=== PATIENT | female | born 1970 | race Caucasian/White ===

== ENCOUNTER 2017-07-28 19:00 | Emergency (ER) | payer OTHER ==
[2017-07-28 19:14] VITALS: TEMP 98.3; BMI 43.0
[2017-07-28] MEDS ORDERED: ONDANSETRON 4 MG/2 ML VIAL IVPUSH ONE (19:14)
--- NOTE | 2017-07-28 19:14 | PDOC ---
Rapid Medical Evaluation Time Seen by Provider: 07/28/17 19:08 Medical Evaluation: 07/28/17 19:09 The patient presents with a chief complaint of: [Epigastric pain, H/O pancreatitis, pain is the same. + nausea and vomiting. Lower back pain. H/O " leaky valve in heart " HTN, Vasovagal syndrome ( passes out when vomiting) ] I have performed a brief in-person evaluation of this patient. Pertinent physical exam findings: vss, [Left upper quadrant pain, obese, nondisrended,, lungs clear, ] I have ordered the following: [Labs, urine, zofran, EKG] The patient will proceed to the ED for further evaluation. Discharge Disposition - Diagnosis Epigastric abdominal pain - Referrals - Patient Instructions - Post Discharge Activity
[2017-07-28 20:45] LABS: BASO % 0.4 % (0-2.0); EOS % 0.3 % (0-4.5); HEMATOCRIT 37.2 % (32.4-45.2); HEMOGLOBIN 12.4 GM/dL (10.7-15.3); LYMPH % 14.7 % (8-40); MCH 27.3 pg (25.7-33.7); MCHC 33.2 g/dl (32.0-36.0); MEAN CELL VOLUME 82.1 fl (80-96); MEAN PLT VOLUME 9.8 fl (7.5-11.1); MONO % 5.1 % (3.8-10.2); NEUT % 79.5 % (42.8-82.8); PLATELET COUNT 280 K/MM3 (134-434); RBC 4.54 M/mm3 (3.60-5.2); RDW 14.3 % (11.6-15.6)
[2017-07-28 20:47] LABS: URINE APPEARANCE CLEAR; URINE BILIRUBIN NEGATIVE (NEGATIVE); URINE BLOOD 3+ (NEGATIVE); URINE COLOR LTYELLOW; URINE GLUCOSE (UA) NEGATIVE (NEGATIVE); URINE KETONE NEGATIVE (NEGATIVE); URINE LEUK ESTERASE NEGATIVE (NEGATIVE); URINE NITRITE NEGATIVE (NEGATIVE); URINE UROBILINOGEN NEGATIVE mg/dL (0.2-1.0)
[2017-07-28 20:54] LABS: URINE PROTEIN 2+ (NEGATIVE)
[2017-07-28 20:56] LABS: EPI CELLS RARE /HPF (FEW); URINE HYALINE CAST 4 /lpf; URINE MUCUS RARE
[2017-07-28 21:11] LABS: ALBUMIN 3.8 g/dl (3.4-5.0); ALK PHOS 88 U/L (45-117); ANION GAP 7 (8-16); BILIRUBIN,TOTAL 0.2 mg/dL (0.2-1.0); BLOOD UREA NITROGEN 15 mg/dL (7-18); CALCIUM 9.5 mg/dL (8.5-10.1); CHLORIDE 103 mmol/L (98-107); CO2 28 mmol/L (21-32); CREATININE 0.9 mg/dL (0.55-1.02); GLUCOSE,RANDOM 112 mg/dL (74-106); LIPASE 72 U/L (73-393); POTASSIUM 3.9 mmol/L (3.5-5.1); SGOT/AST 16 U/L (15-37); SGPT/ALT 28 U/L (12-78); SODIUM 138 mmol/L (136-145); TOT PROT 7.7 g/dl (6.4-8.2)
[2017-07-29] MEDS ORDERED: ONDANSETRON 4 MG TABLET PO ONE (00:08)
--- NOTE | 2017-07-29 00:15 | PDOC ---
History of Present Illness - General History Source: Patient Exam Limitations: No Limitations <Cyril Martinez - Last Filed: 07/29/17 01:31> <Mercedes Hansen - Last Filed: 07/29/17 01:38> - General Chief Complaint: Pain Stated Complaint: hx of pancereatitis/ CHEST PAIN Time Seen by Provider: 07/28/17 19:08 - History of Present Illness Initial Comments: 07/29/17 01:31 Patient is a 47 year old female with a significant past medical history of Asthma, Pancreatitis (20 years ago), and Heart Arrhythmia, who presents to the ED with complaints of intermittent left sided pain that began this afternoon. Patient reports making food for her when she suddenly began to experience left sided pain under her breast that began to radiate to her LUQ. She reports feeling this pain before but states this is the worst it has ever been. Patient reports experiencing intermittent nausea since this morning as well as an episode of vomiting in the ED. She reports her last menstrual cycle ends today, and began last . Denies chest pain, Sob. Denies fevers, chills. Denies contact with sick individuals, out of state travelling. Denies any other symptoms. Allergies: Aspirin, Clarithromycin Social history: Lives with . No smoking. No alcohol. No illicit drugs. Surgical history: C -section x3. PMD: Dr. Charles Henry (Cyril Martinez) Past History <Cyril Martinez - Last Filed: 07/29/17 01:31> - Past Medical History Asthma: Yes Cardiac Disorders: Yes (leaky valve) COPD: No GI Disorders: Yes (pancreatitis) HTN: Yes - Suicide/Smoking/Psychosocial Hx Smoking History: Never smoked Information on smoking cessation initiated: No Hx Alcohol Use: No Drug/Substance Use Hx: No Substance Use Type: None <Mercedes Hansen - Last Filed: 07/29/17 01:38> - Past Medical History Allergies/Adverse Reactions: Allergies Allergy/AdvReac Type Severity Reaction Status Date / Time aspirin Allergy Verified 07/28/17 19:09 clarithromycin [From Biaxin] Allergy Verified 07/28/17 19:09 Home Medications: Ambulatory Orders NK [No Known Home Medication] 07/29/17 Review of Systems - Review of Systems Able to Perform ROS?: Yes All Other Systems: Reviewed and Negative <Cyril Martinez - Last Filed: 07/29/17 01:31> <Mercedes Hansen - Last Filed: 07/29/17 01:38> - Review of Systems Comments:: 07/29/17 01:31 CONSTITUTIONAL: Absent: fever, chills, diaphoresis, generalized weakness, malaise, loss of appetite HEENT: Absent: rhinorrhea, nasal congestion, throat pain, throat swelling, difficulty swallowing, mouth swelling, ear pain, eye pain, visual Changes CARDIOVASCULAR: Absent: chest pain, syncope, palpitations, irregular heart rate, lightheadedness , peripheral edema RESPIRATORY: Absent: cough, shortness of breath, dyspnea with exertion, orthopnea, wheezing, stridor, hemoptysis GASTROINTESTINAL: Absent: abdominal pain, abdominal distension, nausea, vomiting, diarrhea, constipation, melena, hematochezia GENITOURINARY: Absent: dysuria, frequency, urgency, hesitancy, hematuria, flank pain, genital pain MUSCULOSKELETAL: Absent: myalgia, arthralgia, joint swelling SKIN: Absent: rash, itching, pallor HEMATOLOGIC/IMMUNOLOGIC: Absent: easy bleeding, easy bruising, lymphadenopathy, frequent infections ENDOCRINE: Absent: unexplained weight gain, unexplained weight loss, heat intolerance, cold intolerance NEUROLOGIC: Absent: headache, focal weakness or paresthesias, dizziness, unsteady gait, seizure, mental status changes, bladder or bowel incontinence PSYCHIATRIC: Absent: anxiety, depression, suicidal or homicidal ideation, hallucinations. (Cyril Martinez) *Physical Exam <Cyril Martinez - Last Filed: 07/29/17 01:31> <Mercedes Hansen - Last Filed: 07/29/17 01:38> - Vital Signs Last Vital Signs Temp Pulse Resp BP Pulse Ox 98.3 F 98 H 18 167/106 100 07/28/17 19:10 07/28/17 19:10 07/28/17 19:10 07/28/17 19:10 07/28/17 19:10 - Physical Exam Comments: 07/29/17 01:31 GENERAL: Well developed, well nourished. Awake and alert. No acute distress. HEENT: Normocephalic, atraumatic. PERRLA, EOMI. No conjunctival pallor. Sclera are non- icteric. Moist mucous membranes. Oropharynx is clear. NECK: Supple. Full ROM. No JVD. Carotid pulses 2+ and symmetric, without bruits. No thyromegaly. No lymphadenopathy. CARDIOVASCULAR: +Tachycardic Regular rate and rhythm. No murmurs, rubs, or gallops. Distal pulses are 2+ and symmetric. PULMONARY: No evidence of respiratory distress. Lungs clear to auscultation bilaterally. No wheezing, rales or rhonchi. ABDOMINAL: Soft. Non-tender. Non-distended. No rebound or guarding. No organomegaly. Normoactive bowel sounds. MUSCULOSKELETAL: Left breast pain. Normal range of motion at all joints. No bony deformities or tenderness. No CVA tenderness. EXTREMITIES: No cyanosis. No clubbing. No edema. No calf tenderness. SKIN: Warm and dry. Normal capillary refill. No rashes. No jaundice. NEUROLOGICAL: Alert, awake, appropriate. Cranial nerves 2-12 intact. No deficits to light touch and temperature in face, upper extremities and lower extremities. No motor deficits in the in face, upper extremities and lower extremities. Normoreflexic in the upper and lower extremities. Normal speech. Toes are down-going bilaterally. Gait is normal without ataxia. PSYCHIATRIC: Cooperative. Good eye contact. Appropriate mood and affect. (Cyril Martinez) ED Treatment Course - LABORATORY CBC & Chemistry Diagram: 07/28/17 20:31 07/28/17 20:31 <Cyril Martinez - Last Filed: 07/29/17 01:31> - LABORATORY CBC & Chemistry Diagram: 07/28/17 20:31 07/28/17 20:31 <Mercedes Hansen - Last Filed: 07/29/17 01:38> - ADDITIONAL ORDERS Additional order review: Laboratory Results 07/29/17 07/28/17 07/28/17 00:20 20:37 20:31 Sodium 138 Potassium 3.9 Chloride 103 Carbon Dioxide 28 Anion Gap 7 L BUN 15 Creatinine 0.9 Creat Clearance w eGFR > 60 Random Glucose 112 H Calcium 9.5 Total Bilirubin 0.2 AST 16 ALT 28 Alkaline Phosphatase 88 Creatine Kinase 96 Troponin I < 0.02 Total Protein 7.7 Albumin 3.8 Lipase 72 L Urine Color Ltyellow Urine Appearance Clear Urine pH 6.0 Ur Specific [place] 1.018 Urine Protein 2+ H Urine Glucose (UA) Negative Urine Ketones Negative Urine Blood 3+ H Urine Nitrite Negative Urine Bilirubin Negative Urine Urobilinogen Negative Ur Leukocyte Esterase Negative Urine WBC (Auto) 22 Urine RBC (Auto) 62 Ur Epithelial Cells Rare Hyaline Casts 4 Urine Mucus Rare 07/28/17 20:31 RBC 4.54 MCV 82.1 MCHC 33.2 RDW 14.3 MPV 9.8 Neutrophils % 79.5 Lymphocytes % 14.7 Monocytes % 5.1 Eosinophils % 0.3 Basophils % 0.4 Medical Decision Making <Cyril Martinez - Last Filed: 07/29/17 01:31> <Mercedes Hansen - Last Filed: 07/29/17 01:38> - Medical Decision Making 07/29/17 01:34 44 yo female p/w atypical chest pain that occurred about 5 pm. It was pain under her left breast that has since resolved -I explained that I need to repeat her troponin and ekg but she is asymtopmatic and is leaving -she states she will see her PCP Dr Charles Henry in the morning PMH HTN Explained to her that we cannot rule a cardaic event with only 1 troponin but she wants to leave now (Mercedes Hansen) *DC/Admit/Observation/Transfer <Cyril Martinez - Last Filed: 07/29/17 01:31> <Mercedes Hansen - Last Filed: 07/29/17 01:38> Diagnosis at time of Disposition: Chest pain, atypical - Discharge Dispostion Disposition: AGAINST MEDICAL ADVICE Condition at time of disposition: Stable - Referrals Referrals: Charles Henry MD [Primary Care Provider] - - Patient Instructions - Post Discharge Activity - Attestations Scribe Attestion: 07/29/17 01:31 Documentation prepared by Cyril Martinez, acting as emergency medical technician/driver for Mercedes Hansen MD/DO. (Cyril Martinez)
[2017-07-29] MEDS ORDERED: ONDANSETRON *ODT* 4 MG TABLET ONE (00:42)
[2017-07-29 01:50] VITALS: BP 129/87; PULSE 94
--- NOTE | 2017-07-30 08:09 | EKG ---
Test Reason : Blood Pressure : / mmHG Vent. Rate : 101 BPM Atrial Rate : 101 BPM P-R Int : 198 ms QRS Dur : 098 ms QT Int : 354 ms P-R-T Axes : 038 -17 005 degrees QTc Int : 459 ms SINUS TACHYCARDIA VOLTAGE CRITERIA FOR LEFT VENTRICULAR HYPERTROPHY ABNORMAL ECG NO PREVIOUS ECGS AVAILABLE Confirmed by MARIAELENA GARNICA MD ([id number]) on 07/30/2017 8:09:02 AM Referred By: Confirmed By:MARIAELENA GARNICA MD
== END 2017-07-29 01:50 | disposition left against medical advice (07) ==
LOC: JER 19:00
DX: R07.89 Other chest pain (principal); I10 Essential (primary) hypertension; Z87.19 Personal history of other diseases of the digestive system; J45.909 Unspecified asthma, uncomplicated
CPT/HCPCS: 36415; 80053; 81003; 81015; 82550; 83690; 84484; 85025; 87086; 87186; 93005; 93010; 99282-25

== ENCOUNTER 2017-09-03 09:57 | Day surgery (SDC) | payer OTHER ==
--- NOTE | 2017-09-01 09:59 | HP ---
DATE OF ADMISSION: 09/03/2017 DATE OF DICTATION: 08/26/2017 REASON FOR ADMISSION: Symptomatic biliary disease. BRIEF HISTORY: This is a 47-year-old female who presented to [facility] Emergency Room with chest and upper abdominal pain. At that time, according to the patient, she was ruled out for a cardiac event (those results are not available to me). The following day, she was sent to see her primary care physician. The patient followed up as instructed and followed up with Dr. Henry. At that time, he thought it could be biliary and ordered an ultrasound. The ultrasound demonstrated small, non-mobile, non-shadowing densities in the neck of the gallbladder that may represent small stones versus polyps. At the time of that evaluation, her LFTs were normal. In retrospect, the patient feels she has had this similar problem for approximately 2 to 2-1/2 years now which she had initially attributed to stress and indigestion. She denies a change in stool color or urine color. PAST MEDICAL HISTORY: Significant for a history of asthma. She has heart disease and hypertension. She also has a vasovagal syndrome. PAST SURGICAL HISTORY: She has undergone 3 C-sections in the past. ALLERGIES: ASPIRIN, patient gets nosebleeds; BIAXIN, she has stomachaches. MEDICATIONS: Singulair, atenolol, losartan, and omeprazole. SOCIAL HISTORY: Patient does not smoke or drink. PHYSICAL EXAMINATION: HEENT: There is no icterus. Abdomen: Moderately obese, soft, nontender, nondistended. She has a chronically incarcerated ventral hernia noted at the level of the umbilicus. The hernia itself is at least the size of a golf ball. The actual defects are not truly appreciated due to its chronically incarcerated nature. The remainder of the abdominal examination is unremarkable. IMPRESSION/PLAN: Suspect symptomatic biliary disease, cholelithiasis versus polyp; history of abdominal pain; chronically incarcerated ventral hernia at the level of the umbilicus. This is a 47-year-old female who appears to be symptomatic from her biliary disease. She presented to [facility] Emergency Room with upper abdominal and chest pain. She was ruled out for a cardiac event, and it is thought that her pain was related to a biliary event. At this point, the ultrasound confirmed small stones. However, a polyp could not be ruled out, and therefore, at this time, patient will be scheduled for a laparoscopic cholecystectomy. With regard to the incidental finding of a chronically incarcerated ventral hernia, patient states she is becoming more symptomatic from this with episodes of periumbilical pain, and she wishes to have this repaired as well. We have had a very long conversation regarding the reason not to repair this at the same setting, and we will do this at a latter point with mesh. Patient will be scheduled for a laparoscopic cholecystectomy, possible open. The hernia will not be addressed during this operation and will be dealt with in 3-6 months following the initial operation. The indications, alternatives, and complications of the procedure have been discussed. Questions have been answered. We will plan to obtain written consent the day of surgery. Mitchel GREENE [id number]
[2017-09-02 08:39] VITALS: BMI 43.0
[~2017-09-03 09:57] MED LIST: ceFAZolin SODIUM 1 GM VIAL IVPB ONE
[2017-09-03] MEDS ORDERED: ERTAPENEM SODIUM 1 GM VIAL ONE (10:30)
[2017-09-03] MEDS ORDERED: ONDANSETRON 4 MG/2 ML VIAL IVPUSH PRN ×2 (12:05→14:22)
[2017-09-03] MEDS ORDERED: MIDAZOLAM HCL 2 MG/2 ML SINGLE DOSE VIAL ONE ×2 (12:12)
[2017-09-03] MEDS ORDERED: LACTATED RINGERS SOLUTION 1,000 ML IV SCH (12:15)
[2017-09-03] MEDS ORDERED: PROPOFOL 20 ML ONE ×2 (12:22)
[2017-09-03] MEDS ORDERED: ERTAPENEM SODIUM 1 GM VIAL IVPB ONE (12:25)
[2017-09-03] MEDS ORDERED: ROCURONIUM BROMIDE 50 MG/5 ML VIAL ONE (12:35)
[2017-09-03] MEDS ORDERED: NEOSTIGMINE METHYLSULFATE 0.5 MG/ML - 10 ML MDV ONE (12:51)
[2017-09-03] MEDS ORDERED: ALBUTEROL SO4 18 GM HFA INHALER IH PRN ×3 (14:21→15:55)
[2017-09-03] MEDS ORDERED: morphine CARPU-JECT 4 MG/1 ML DISP.SYRIN IVPB PRN (14:22)
[2017-09-03] MEDS ORDERED: oxyCODONE HCL 5 MG TABLET PO PRN (14:22)
[2017-09-03] MEDS ORDERED: ACETAMINOPHEN 325 MG TABLET (FP) PO PRN (14:22)
[2017-09-03] MEDS ORDERED: D5-1/2NS+20 MEQ KCL - 20 MEQ/1,000 ML INFUS.BAG IV SCH (14:30)
[2017-09-03] MEDS ORDERED: MONTELUKAST NA 10 MG TABLET PO SCH (17:00)
--- NOTE | 2017-09-04 07:12 | OP ---
DATE OF OPERATION: 09/03/2017 PREOPERATIVE DIAGNOSIS: Symptomatic cholelithiasis, chronically incarcerated umbilical hernia. POSTOPERATIVE DIAGNOSIS: Symptomatic cholelithiasis, chronically incarcerated umbilical hernia. PROCEDURE: Laparoscopic cholecystectomy, peritoneal lavage. SURGEON: Kurt Lamar MD CORONARY CLINICAL SPECIALIST: Andres Arredondo MD ANESTHESIA: Edel Adame MD (general). ESTIMATED BLOOD LOSS: Minimal. SPECIMENS: Gallbladder. INDICATION FOR PROCEDURE: This is a 47-year-old female with known biliary disease. Refer to my H&P for details. Patient is here for laparoscopic cholecystectomy. DESCRIPTION OF PROCEDURE: Patient identified, appropriately positioned on the operating room table. After placement of general anesthesia, the abdomen was prepped and draped in the usual sterile fashion with ChloraPrep. An supraumbilical incision was made, deepened to subcutaneous tissue. The fascia was divided sharply, the peritoneum incised and under direct vision a Veress needle followed by structural needle placed. The remaining ports were placed under direct vision as well. It is obvious this patient's incarcerated hernia is containing the omentum of the transverse colon, and the transverse colon is lifted to the anterior abdominal wall. The colon is not in the hernia at this time. The gallbladder identified in the right upper quadrant. Going from lateral to medial, the neck and infundibulum of the gallbladder identified, followed by the cystic duct. The cystic duct was circumferentially isolated, clipped, and then divided. The cystic artery identified more medially and posteriorly. It was subsequently isolated, clipped, and then divided in a similar fashion. The gallbladder itself was removed from the liver bed with electrocautery. Prior to complete removal, the liver bed was irrigated, the operative field examined, noted to be hemostatic. The specimen was placed in an EndoCatch bag and brought out through the umbilical port site. The fascia at the umbilicus was reapproximated with interrupted 0 Vicryl suture. All skin closed with 4-0 Biosyn followed by Dermabond. The incarcerated umbilical hernia was very large and generous and not addressed during this operation. It needs to be addressed in a future setting. At the conclusion of the case, sponge and needle counts correct. ATTESTATION: Brief operative note handwritten on the preprinted form. [facility] will be queried prior to giving any narcotics. KURT LAMAR M.D. OTILIO/[id number]
--- NOTE | 2017-09-04 09:40 | PN ---
Progress Note, Physician Chief Complaint: Pt. pain controlled, no GA complaints - Current Medication List Current Medications: Active Medications Acetaminophen (Tylenol -) 650 mg PO Q4H PRN PRN Reason: FEVER Albuterol Sulfate (Ventolin Hfa Inhaler -) 1 puff IH DAILY PRN PRN Reason: SHORTNESS OF BREATH Albuterol Sulfate (Ventolin Hfa Inhaler -) 2 puff IH DAILY PRN PRN Reason: SHORTNESS OF BREATH Atenolol (Tenormin -) 100 mg PO DAILY [facility] Losartan Potassium (Cozaar -) 25 mg PO DAILY [facility] Montelukast Sodium (Singulair -) 10 mg PO DAILY@1700 [facility] Last Admin: 09/03/17 17:45 Dose: 10 mg Morphine Sulfate (Morphine Injection -) 4 mg IVPB Q3H PRN PRN Reason: PAIN LEVEL 7-10 Ondansetron HCl (Zofran Injection) 4 mg IVPUSH Q6H PRN PRN Reason: NAUSEA Oxycodone HCl (Roxicodone -) 7.5 mg PO Q4H PRN PRN Reason: PAIN LEVEL 4 - 6 Pantoprazole Sodium (Protonix Iv) 40 mg IVPUSH DAILY [facility] - Objective Vital Signs: Vital Signs Temperature 98.5 F 09/04/17 06:00 Pulse Rate 97 H 09/04/17 06:00 Respiratory Rate 16 09/04/17 06:00 Blood Pressure 121/63 09/04/17 06:00 O2 Sat by Pulse Oximetry (%) 95 09/03/17 15:25 Constitutional: Yes: Well Nourished, No Distress, Calm Musculoskeletal: Yes: WNL Neurological: Yes: WNL, Alert, Oriented ...Motor Strength: WNL Assessment/Plan POD#1 s/p elias boyde under GA. Ralph landaverde. D/C from anesthesia care.
[2017-09-04 09:51] VITALS: BP 123/65; PULSE 91; TEMP 98.7
[2017-09-04] MEDS ORDERED: MONTELUKAST NA 10 MG TABLET PO SCH (10:00)
[2017-09-04] MEDS ORDERED: LOSARTAN POTASSIUM 25 MG TABLET PO SCH (10:00)
[2017-09-04] MEDS ORDERED: PANTOPRAZOLE SODIUM 40 MG VIAL IVPUSH SCH (10:00)
[2017-09-04] MEDS ORDERED: ATENOLOL 50 MG TABLET (FP) PO SCH (10:00)
--- NOTE | 2017-09-04 12:02 | PATH ---
Surgical Pathology Report Patient Name: BROOK GAVIRIA [facility]. Rec. #: [id number] /Age/Gender: 1970 (Age: 47) / F Account: [id number] Location: [address] [place] [address]/[facility] Taken: 09/03/2017 Received: 09/03/2017 Reported: 09/04/2017 Physicians: Kurt Augustin Specimen(s) Received GALLBLADDER Clinical History Calculus of gallbladder Final Diagnosis GALLBLADDER, CHOLECYSTECTOMY: CHRONIC CHOLECYSTITIS AND CHOLELITHIASIS. Electronically Signed Behzad Shine M.D. Gross Description Received in formalin, labeled "gallbladder," is a 8.5 x 2.8 x 2.5 cm. gallbladder with a 0.2 cm. in length portion of cystic duct attached. The outer surface is cuellar hamm and varies from smooth to shaggy. The lumen contains cuellar, tenacious bile as well as a 0.3 cm in greatest dimension black, irregular cholelith. The mucosa is cuellar and velvety. The wall of the gallbladder measures 0.1 cm. in thickness. [employer] sections are submitted in one cassette. 09/03/2017 [facility]09/03/2017
== END 2017-09-04 13:10 | disposition home or self-care (01) ==
LOC: JASUSAT 09:57 → J6S 15:44 → JASUSAT 09-04 13:10
PROVIDERS: ATTEND Surgery
PROC: 0FT44ZZ Resection of Gallbladder, Percutaneous Endoscopic Approach (ICD-10-PCS; principal; 2017-09-03 11:30)
DX: K80.10 Calculus of gallbladder with chronic cholecystitis without obstruction (principal)
CPT/HCPCS: 84703; 88304-TC; 94760

== ENCOUNTER 2017-10-19 10:37 | Inpatient (IN) | payer OTHER ==
--- NOTE | 2017-10-19 10:56 | PDOC ---
Attending Attestation - [facility] HPI: 10/19/17 11:28 Patient is a 47 year old female with a significant past medical history of Asthma, Pancreatitis (20 years ago), and Heart Arrhythmia, who was referred to the ED by her PMD for r/o appendicitis. Patient reports with multiple nausea, vomiting, and vasovagal episodes since 1:00 this morning. She recently had her gallbladder removed 6 weeks ago. She last ate some cookie cake yesterday but has not eaten since and has been drinking sips of Gatorade. She reports that her last BM was yesterday at 4pm and she has not passed any gas as well. Patient has an umbilical hernia that she is supposed to get surgery for in 2 weeks. Allergies: Aspirin, Clarithromycin Social history: Lives with . No smoking. No alcohol. No illicit drugs. Surgical history: Gallbladder removal 09/03/[address] Kurt Augustin. C -section x3. PMD: Dr. Charles Henry - Physicial Exam PE: 10/19/17 11:48 Constitutional: Awake, alert, oriented. No acute distress. Head: Normocephalic. Atraumatic Eyes: Exophthalmos. PERRL. EOMI. Conjunctivae are not pale. ENT: Mucous membranes are mildy dry. Posterior pharynx without exudates or erythema. Uvula midline. Neck: Supple. Full ROM. No lymphadenopathy. Cardiovascular: Tachycardic. Regular rate. Regular rhythm. S1, S2 regular. Distal pulses are 2+ and symmetric. Pulmonary/Chest: No evidence of respiratory distress. Clear to auscultation bilaterally No wheezing, rales or rhonchi. Abdominal: Obese, soft and distended. Umbilical hernia -warm to touch, mildy red at skin, tender to palpation, non reducible. Tenders in LUQ. Diminished bowel sounds. No rebound or rigidity. No organomegaly. No palpable masses. Back: No CVA tenderness. Musculoskeletal: No edema. No cyanosis. No clubbing. Full range of motion in all extremities. No calf tenderness. Radial/pedal pulses are intact and 2+ bilaterally Skin: Skin is warm and dry. No petechiae. No purpura. Neurological: Alert and oriented to person, place, and time. Cranial nerves II -XII are grossly intact. Normal speech. Strength is grossly symmetric. No sensory deficits. Psychiatric: Good eye contact. Normal interaction, affect and behavior. <Henrietta Fishman - Last Filed: 10/19/17 11:48> - Resident Resident Name: Gildardo Rhoades - ED Attending Attestation I have performed the following: I have examined & evaluated the patient, The case was reviewed & discussed with the resident, I agree w/resident's findings & plan, Exceptions are as noted - Medical Decision Making 10/19/17 10:56 I, Dr. Kimberly Mayberry, DO, attest that this document has been prepared under my direction and personally reviewed by me in its entirety. I further attest, that it accurately reflects all work, treatment, procedures and medical decision -making performed by me. 10/19/17 11:21 a/p: 47yo female with n/v since yesterday -last bm yesterday at 4p, last flatus at the same time -unable to tolerate po -umbilical hernia that is not reducible -ttp over hernia site and LUQ -concern for obstruction vs incarcerated hernia -will obtain labs, ct abd/pelvis -recent cholecystectomy with Dr. Kurt Augustin 10/19/17 11:24 case discussed withDr. Kurt Augustin - always has a hard unreducible hernia at the umbilicus - call back with ct results 10/19/17 13:40 pt still vomiting will remedicate, pending CT 10/19/17 17:30 pt with SBO and bowel inside the hernia concerning for hernia as site of obstruction 10/19/17 17:56 pt will be admitted <Kimberly Mayberry - Last Filed: 10/19/17 17:56> Heart Score/ECG Review - ECG Intrepretation Comment:: 10/19/17 12:00 sinus tach at 101, nl axis, nl interval, lvh, no acute st/t wave findings <Kimberly Mayberry - Last Filed: 10/19/17 17:56>
[2017-10-19] MEDS ORDERED: ONDANSETRON 4 MG/2 ML VIAL IVPUSH ONE ×2 (11:07→17:46)
[2017-10-19] MEDS ORDERED: SODIUM CHLORIDE 1,000 ML IV STA (11:07)
[2017-10-19] MEDS ORDERED: ONDANSETRON 4 MG/2 ML VIAL ONE ×4 (11:12→22:21)
--- NOTE | 2017-10-19 11:14 | PDOC ---
History of Present Illness <Henrietta Fishman - Last Filed: 10/19/17 18:18> - History of Present Illness Initial Comments: 10/19/17 11:14 The patient is a 47 year old female with a history of HTN, HLD s/p cholecystectomy 1 month ago who presents for evaluation of abdominal pain. The patient reports a 1 day history of left sided crampy abdominal pain that has since migrated to her umbilicus and become sharp in quality. She states that the pain is associated with severe nausea and multiple episodes of bilious emesis. She states that her last bowel movement and flatus was 1 day ago prior to the onset of symptoms. She does note that she has a known umbilical hernia. She otherwise denies fevers, chills, SOB, chest pain, or changes with urination. <Gildardo Rhoades - Last Filed: 10/19/17 18:28> - General Chief Complaint: Pain Stated Complaint: ABD PAIN (PCP SENT) Time Seen by Provider: 10/19/17 10:49 Past History <Henrietta Fishman - Last Filed: 10/19/17 18:18> - Past Medical History Anemia: No Asthma: Yes (LAST ONE 6MONTHS AGO) Cancer: No Cardiac Disorders: Yes (LEAKY VALVE/MURMUR) CVA: No COPD: No CHF: No DVT: No Dementia: Yes Diabetes: No GI Disorders: Yes (pancreatitis 23YRS AGO) Disorders: No HTN: Yes Hypercholesterolemia: No Liver Disease: No Seizures: No Thyroid Disease: No - Suicide/Smoking/Psychosocial Hx Smoking History: Never smoked Information on smoking cessation initiated: No Hx Alcohol Use: No Drug/Substance Use Hx: No Substance Use Type: None Hx Substance Use Treatment: No <Gildardo Rhoades - Last Filed: 10/19/17 18:28> - Past Medical History Allergies/Adverse Reactions: Allergies Allergy/AdvReac Type Severity Reaction Status Date / Time aspirin Allergy "NOSEBLEEDS Verified 10/19/17 11:04 " clarithromycin [From Biaxin] Allergy "VOMITTING" Verified 10/19/17 11:04 VITAMIN C Allergy "NOSEBLEEDS Uncoded 10/19/17 11:04 " Home Medications: Ambulatory Orders Albuterol Sulfate [Proventil HFA Inhaler -] 1 - 2 inh PO PRN PRN 09/02/17 Atenolol [Tenormin -] 100 mg PO DAILY 09/02/17 Losartan Potassium 25 mg PO DAILY 09/02/17 Montelukast Sodium [Singulair] 10 mg PO DAILY 09/02/17 Naproxen Sodium [Aleve] 220 mg PO PRN PRN 09/02/17 Review of Systems - Review of Systems Comments:: 10/19/17 11:24 Constitutional: No fevers, chills, fatigue, malaise HEENT: No Rhinorrhea, nasal congestion, visual changes Cardiovascular: No chest pain, syncope, palpitations, lightheadedness Respiratory: No Cough, SOB, Hemoptysis, Gastrointestinal: Abdominal pain, nausea, vomiting, constipation. No Diarrhea, Melena Genitourinary: No Dysuria, Frequency, Urgency, Hesitancy, Hematuria, Flank pain Musculoskeletal: No Myalgia, arthralgia Skin: No rashes, itching, bruising, pallor Neurologic: No Headache, Dizziness, Numbness, Weakness, or Tingling Psychiatric: No Hallucinations. No SI or HI <Gildardo Rhoades - Last Filed: 10/19/17 18:28> *Physical Exam - Vital Signs Last Vital Signs Temp Pulse Resp BP Pulse Ox 98.7 F 117 H 18 154/109 100 10/19/17 10:59 10/19/17 10:59 10/19/17 10:59 10/19/17 10:59 10/19/17 10:59 <Henrietta Fishman - Last Filed: 10/19/17 18:18> - Vital Signs Last Vital Signs Temp Pulse Resp BP Pulse Ox 98.7 F 117 H 18 154/109 100 10/19/17 10:59 10/19/17 10:59 10/19/17 10:59 10/19/17 10:59 10/19/17 10:59 - Physical Exam Comments: 10/19/17 11:25 General Appearance: Nourished. In Mild Apparent Distress HEENT: EOMI, BEN. No Pharyngeal Erythema, Tonsillar Exudate, Tonsillar Erythema Neck: No Cervical Lymphadenopathy Respiratory/Chest: Lungs Clear, Normal Breath Sounds. No Crackles, Rales, Rhonchi, Wheezing Cardiovascular: Regular Rhythm, Regular Rate. No Murmur, Gallops, Rubs Gastrointestinal/Abdominal: Normal Bowel Sounds, Tenderness to palpation over non-reducible mass at the umbilicus warm to the touch with mild guarding. No Rebound Musculoskeletal: No CVA Tenderness Extremity: Normal Capillary Refill Integumentary: Normal Color, Dry, Warm Neurologic: Fully Oriented, Alert, Normal Mood/Affect, Normal Response, <Gildardo Rhoades - Last Filed: 10/19/17 18:28> Heart Score/ECG Review #1 ECG reviewed & interpreted by me at: 11:49 (Sinus Tachycardic to 101) General ECG Interpretation: Sinus Rhythm, Normal Intervals, No acute ischemic changes <Gildardo Rhoades - Last Filed: 10/19/17 18:28> ED Treatment Course - LABORATORY CBC & Chemistry Diagram: 10/19/17 11:51 10/19/17 11:51 - ADDITIONAL ORDERS Additional order review: Laboratory Results 10/19/17 10/19/17 10/19/17 12:19 11:51 11:51 PT with INR INR PTT (Actin FS) Sodium 137 Potassium 4.4 Chloride 102 Carbon Dioxide 27 Anion Gap 8 BUN 13 Creatinine 0.8 Creat Clearance w eGFR > 60 Random Glucose 118 H Calcium 9.2 Total Bilirubin 0.5 D AST 16 ALT 27 Alkaline Phosphatase 105 Total Protein 8.4 H Albumin 4.0 Lipase 95 TSH 1.07 Free T4 1.22 Serum , Qual Negative Urine Color Ltyellow Urine Appearance Clear Urine pH 6.0 Ur Specific [place] 1.013 Urine Protein 2+ H Urine Glucose (UA) Negative Urine Ketones Trace H Urine Blood Negative Urine Nitrite Negative Urine Bilirubin Negative Urine Urobilinogen Negative Ur Leukocyte Esterase Negative Urine WBC (Auto) 1 Urine RBC (Auto) None Ur Epithelial Cells Rare Urine Mucus Rare 10/19/17 11:51 PT with INR 12.20 H INR 1.08 PTT (Actin FS) 29.6 Sodium Potassium Chloride Carbon Dioxide Anion Gap BUN Creatinine Creat Clearance w eGFR Random Glucose Calcium Total Bilirubin AST ALT Alkaline Phosphatase Total Protein Albumin Lipase TSH Free T4 Serum , Qual Urine Color Urine Appearance Urine pH Ur Specific [place] Urine Protein Urine Glucose (UA) Urine Ketones Urine Blood Urine Nitrite Urine Bilirubin Urine Urobilinogen Ur Leukocyte Esterase Urine WBC (Auto) Urine RBC (Auto) Ur Epithelial Cells Urine Mucus 10/19/17 11:51 RBC 4.75 MCV 83.0 MCHC 32.8 RDW 14.8 MPV 9.6 Neutrophils % 85.7 H Lymphocytes % 10.4 D Monocytes % 3.5 L Eosinophils % 0.0 D Basophils % 0.4 - RADIOLOGY Radiograph Interpretation: 10/19/17 18:18 EXAM: CT abdomen and pelvis with intravenous contrast HISTORY: Abdominal pain FINDINGS: The heart appears enlarged Mild atelectatic changes at the lung bases The gallbladder is surgically absent The liver is enlarged measuring 20 cm in craniocaudal dimension with fatty changes There is a left adrenal nodule measuring 2.6 cm. This may be an adenoma although attenuation measurements are nonspecific in the presence of IV contrast. Consider MRI to better characterize The upper abdominal visceral organs are otherwise unremarkable There are multiple prominent fluid-filled loops of small bowel with scattered air-fluid levels extending to an umbilical hernia containing a loop of small bowel and omental fat with relative decompression of the bowel distally compatible with small bowel obstruction. There is colonic diverticulosis without evidence of acute diverticulitis 2.9 cm left ovarian cyst. Consider further evaluation with ultrasound No intra-abdominal free air, free fluid or loculated collections Toñito Burnette MD 10/19/2017 17:57 EST - Medications Given in the ED: ED Medications Discontinued Medications Generic Name Dose Route Start Last Admin Trade Name Freq PRN Reason Stop Dose Admin Sodium Chloride 1,000 mls @ 1,000 mls/hr 10/19/17 11:07 10/19/17 11:28 Normal Saline - IV 10/19/17 12:06 1,000 mls/hr ASDIR STA Administration Famotidine/Sodium Chloride 20 mg in 50 mls @ 100 mls/hr 10/19/17 11:17 12:00 Pepcid 20 Mg Premixed Ivpb - IVPB 10/19/17 11:46 100 mls/hr ONCE ONE Administration Piperacillin/Tazobactam/Dextrose 50 mls @ 100 mls/hr 10/19/17 17:17 10/19/17 17:39 Zosyn 3.375gm Ivpb (Premix) IVPB 10/19/17 17:46 100 mls/hr ONCE ONE Administration Protocol Metoclopramide HCl 10 mg 10/19/17 13:40 10/19/17 13:49 Reglan Injection - IVPUSH 10/19/17 13:41 10 mg ONCE ONE Administration Morphine Sulfate 2 mg 10/19/17 11:17 10/19/17 11:39 Morphine Injection - IVPUSH 10/19/17 11:18 2 mg ONCE ONE Administration Ondansetron HCl 4 mg 10/19/17 11:07 10/19/17 11:28 Zofran Injection IVPUSH 10/19/17 11:08 4 mg ONCE ONE Administration Ondansetron HCl 4 mg 10/19/17 17:46 10/19/17 18:05 Zofran Injection IVPUSH 10/19/17 17:47 4 mg ONCE ONE Administration <Henrietta Fishman - Last Filed: 10/19/17 18:18> - LABORATORY CBC & Chemistry Diagram: 10/19/17 11:51 10/19/17 11:51 - RADIOLOGY Radiology Studies Ordered: Category Date Time Status ABDOMEN & PELVIS CT WITH CONTR [CT] Stat CT Scan 10/19/17 11:07 Ordered <Gildardo Rhoades - Last Filed: 10/19/17 18:28> Medical Decision Making - Medical Decision Making 10/19/17 11:26 The patient is a 47 year old female with a history of HTN, HLD s/p cholecystectomy 1 month ago who presents for evaluation of abdominal pain. Differential includes but is not limited to: Obstruction, Incarcerated Hernia, Pancreatitis, Appendicitis, infectious, metabolic derangement. Given the patient's known hernia and physical exam as well as history of vomiting, we are concerned for an incarcerated hernia with obstruction. We will obtain a cbc, cmp, coags, lipase, and abdominal CT to evaluate further for possible etiologies. We will treat with iv fluids, zofran, pepcid, morphine. We will continue to monitor and reassess. 10/19/17 18:25 CBC demonstrates an elevated wbc to 13.3. CMP, lipase were unremarkable. Abdominal CT demonstrates SBO with incarcerated umbilical hernia as preliminarily read by combination saw operator radiologist. The patient's symptoms are likely due to a SBO. We discussed the case with Dr. Augustin with surgery who will evaluate the patient. We discussed the case with Dr. Henry who accepted the patient for admission. We will treat the patient with zosyn here in the ED. <Gildardo Rhoades - Last Filed: 10/19/17 18:28> *DC/Admit/Observation/Transfer <Henrietta Fishman - Last Filed: 10/19/17 18:18> - Discharge Dispostion Admit: Yes <Gildardo Rhoades - Last Filed: 10/19/17 18:28> Diagnosis at time of Disposition: SBO (small bowel obstruction), Incarcerated hernia - Discharge Dispostion Condition at time of disposition: Stable
[2017-10-19] MEDS ORDERED: morphine CARPU-JECT 2 MG/1 ML DISP.SYRIN IVPUSH ONE (11:17)
[2017-10-19] MEDS ORDERED: FAMOTIDINE 20 MG/50 ML IVPB 20 MG/50 ML MG IVPB ONE (11:17)
[2017-10-19] MEDS ORDERED: morphine SULFATE 4 MG/ML VIAL ONE (11:36)
[2017-10-19 12:05] LABS: BASO % 0.4 % (0-2.0); HEMATOCRIT 39.4 % (32.4-45.2); HEMOGLOBIN 12.9 GM/dL (10.7-15.3); LYMPH % 10.4 % (8-40); MCH 27.2 pg (25.7-33.7); MCHC 32.8 g/dl (32.0-36.0); MEAN PLT VOLUME 9.6 fl (7.5-11.1); MONO % 3.5 % (3.8-10.2); NEUT % 85.7 % (42.8-82.8); PLATELET COUNT 340 K/MM3 (134-434); RBC 4.75 M/mm3 (3.60-5.2); RDW 14.8 % (11.6-15.6); WHITE BLOOD COUNT 13.3 K/mm3 (4.0-10.0)
[2017-10-19 12:27] LABS: URINE APPEARANCE CLEAR; URINE BILIRUBIN NEGATIVE (<2.0 mg/dL); URINE COLOR LTYELLOW; URINE GLUCOSE (UA) NEGATIVE (NEGATIVE); URINE KETONE TRACE (NEGATIVE); URINE LEUK ESTERASE NEGATIVE (NEGATIVE); URINE NITRITE NEGATIVE (NEGATIVE); URINE UROBILINOGEN NEGATIVE mg/dL (0.2-1.0)
[2017-10-19 12:31] LABS: URINE PROTEIN 2+ (NEGATIVE)
[2017-10-19 12:32] LABS: EPI CELLS RARE /HPF (FEW); URINE MUCUS RARE
[2017-10-19 12:34] LABS: ANION GAP 8 (8-16); BILIRUBIN,TOTAL 0.5 mg/dL (0.2-1.0); BLOOD UREA NITROGEN 13 mg/dL (7-18); CALCIUM 9.2 mg/dL (8.5-10.1); CHLORIDE 102 mmol/L (98-107); CO2 27 mmol/L (21-32); CREATININE 0.8 mg/dL (0.55-1.02); GLUCOSE,RANDOM 118 mg/dL (74-106); LIPASE 95 U/L (73-393); POTASSIUM 4.4 mmol/L (3.5-5.1); SGOT/AST 16 U/L (15-37); SGPT/ALT 27 U/L (12-78); SODIUM 137 mmol/L (136-145); TOT PROT 8.4 g/dl (6.4-8.2)
[2017-10-19 12:36] LABS: INR 1.08 (0.82-1.09); PROTHROMBIN TIME (PATIENT) 12.2 SEC (9.98-11.88)
[2017-10-19 12:38] LABS: ACTIVATED PTT 29.6 SECONDS (26.9-34.4)
[2017-10-19 12:43] LABS: ALK PHOS 105 U/L (45-117)
[2017-10-19] MEDS ORDERED: METOCLOPRAMIDE HCL INJECTION 10 MG/2 ML VIAL IVPUSH ONE (13:40)
[2017-10-19] MEDS ORDERED: METOCLOPRAMIDE HCL INJECTION 10 MG/2 ML VIAL ONE (13:46)
[2017-10-19] MEDS ORDERED: PIPERACILLIN/TAZOB 3.375 GM 50 ML IVPB ONE (17:17)
[2017-10-19] MEDS ORDERED: PIPERACILLIN/TAZOB 3.375 GM 3.375 GM/50 ML BAG IVPB ONE (17:29)
[2017-10-19] MEDS: PIPERACILLIN/TAZOB 3.375 GM 3.375 GM in DEXTROSE 5%-WATER - 50 ML IVPB SCH (18:05)
[2017-10-19 18:30] VITALS: BMI 50.8
[2017-10-19] MEDS ORDERED: LACTATED RINGERS SOLUTION 1,000 ML IV SCH (18:45)
[2017-10-19] MEDS ORDERED: ROCURONIUM BROMIDE 50 MG/5 ML VIAL ONE (18:50)
[2017-10-19] MEDS ORDERED: PROPOFOL 20 ML ONE (18:50)
[2017-10-19] MEDS ORDERED: SUCCINYLCHOLINE CHLORIDE 200 MG/10 ML VIAL ONE (18:50)
[2017-10-19] MEDS ORDERED: MIDAZOLAM HCL 2 MG/2 ML SINGLE DOSE VIAL ONE (18:50)
--- NOTE | 2017-10-19 19:05 | CONS ---
DATE OF CONSULTATION: 10/19/2017 REFERRING PHYSICIAN: Charles Henry MD REASON FOR REFERRAL: Abdominal pain, small-bowel obstruction, chronic and acutely incarcerated ventral hernia. BRIEF HISTORY: This is a 47-year-old female, who is known to have a chronically incarcerated ventral hernia. She underwent a laparoscopic cholecystectomy approximately 5 or 6 weeks ago, which was uneventful. She was fine up until last evening at a birthday democrat and subsequently developed abdominal pain that had significantly worsening this morning. This brought her to the emergency room. Since last evening, the patient has had nausea and vomiting. CT scan was performed. CT preliminary read given to the emergency room physician demonstrates findings consistent with a chronically incarcerated ventral hernia with a loop of intestine that appears to be obstruction with air-fluid levels and there is stranding in the fat. She has a leukocytosis of 13,000. The patient states she is slightly better now but she was given morphine. She continues to have vomiting and nausea in the emergency room. Past medical history is significant for asthma and pancreatitis 20 years ago, heart arrhythmias. PAST SURGICAL HISTORY: Status post laparoscopic cholecystectomy approximately 5 or 6 weeks ago ([facility]). MEDICATIONS: Refer to chart. ALLERGIES: To CLARITHROMYCIN. SOCIAL HISTORY: Patient does not smoke nor drink. PHYSICAL EXAMINATION: General: Patient is obese. Abdomen: Soft. There is a large mass in the mid aspect of the abdomen. The mass is not underlying the incision from the extraction site of the laparoscopic cholecystectomy. The incision is just beneath the umbilicus. She is known to have a chronically incarcerated umbilical hernia; however, this mass today is much larger than what has been documented in the old previous office notes. Patient states she has excruciating pain in the area as well. She has guarding plus/minus rebound. IMPRESSION/PLAN: Chronic and acutely incarcerated ventral hernia. Patient at this time has evidence of bowel obstruction radiographically and clinically. Will plan to take the patient to the operating room in an urgent fashion and evaluate the bowel and repair the hernia. Due to the urgent nature of this surgery, the patient understands her recurrence rates are almost 100%, is accepting of this, and will deal with the recurrence down the road. The indications, alternatives, and complications of the procedure were discussed as well. Thank you for allowing me to participate in the care of your patient. YEFRI LAMAR M.D. [id number] cc: Charles Henry MD
[2017-10-19] MEDS ORDERED: AMPICILLIN NA/SULBACTAM NA 1.5 GM VIAL IVPB ONE (19:17)
[2017-10-19] MEDS ORDERED: AMPICILLIN NA/SULBACTAM NA 1.5 GM VIAL ONE (19:17)
[2017-10-19] MEDS ORDERED: DESFLURANE GAS 240 ML BOTTLE IH ONE (19:25)
[2017-10-19] MEDS ORDERED: DEXAMETHASONE SOD PHOSPHATE 4 MG/1 ML VIAL ONE (19:33)
[2017-10-19] MEDS ORDERED: NEOSTIGMINE METHYLSULFATE 0.5 MG/ML - 10 ML MDV ONE (19:53)
--- NOTE | 2017-10-19 23:01 | OP ---
DATE OF OPERATION: 10/19/2017 PREOPERATIVE DIAGNOSIS: Acute incarceration of chronically incarcerated ventral hernia. POSTOPERATIVE DIAGNOSIS: Acute incarceration of chronically incarcerated ventral hernia. PROCEDURE: Laparotomy, partial omentectomy, reduction of incarcerated bowel, primary hernia repair. SURGEON: Kurt Augustin M.D. WIRE WELDER: Maykel Manley D.O. ANESTHESIOLOGIST: Kamaljit Gerard M.D. (general) ESTIMATED BLOOD LOSS: Minimal. SPECIMEN: Portion of omentum and hernia sac. INDICATION FOR PROCEDURE: This is a 47-year-old patient who is known to have a chronically incarcerated ventral hernia. She developed an acute incarceration of the chronic component last evening. She had progressive abdominal pain associated with nausea, vomiting today. CT scan consistent with incarcerated loop of small bowel within the hernia with fat stranding consistent with early ischemia. She is here today for an urgent repair. DESCRIPTION OF PROCEDURE: Patient is identified, and appropriately positioned on operating room table. After placement of general anesthesia and prepped and draped in the usual sterile fashion with Chloraprep, patient is noted to have a very deep umbilicus and there is a lot of junk and cheese within the depths of the umbilicus which is cleaned as well as possible, given the acuteness of this nature. An incision was made in the midline vertically and deepened to subcutaneous tissue. The hernia identified and circumferentially isolated from the surrounding tissue. This was taken down to the level of the fascia. The sac opened and contained a loop of bowel. The bowel was examined and noted to be congested but not . The bowel reduced back into the abdominal cavity and watched and then it pinked up. There is no obvious bloody ascites in the abdominal cavity. The omentum was subsequently clamped, divided, tied with 0 Vicryl sutures. The operative field noted to be hemostatic. The sac and portion of the incarcerated omentum was excised. Next the defect was primarily closed with interrupted number 1 Prolene sutures. The subcutaneous space irrigated due to the depth of the subcutaneous tissue. A 10 flat OVIDIO placed and brought through a separate stab incision. The skin closed with maritza. OVIDIO sewn with 3-0 nylon. At the conclusion of the case, sponge and needle counts were correct. ATTESTATION: Brief operative note handwritten on the preprinted form. [facility] queried prior to giving any narcotics. Mitchel GREENE [id number] MTDD
[2017-10-20] MEDS ORDERED: morphine SULFATE 4 MG/ML VIAL IVPB PRN ×2 (00:19→00:20)
[2017-10-20] MEDS ORDERED: ACETAMINOPHEN 325 MG TABLET (FP) PO PRN (00:21)
[2017-10-20] MEDS: ONDANSETRON 4 MG/2 ML VIAL IVPUSH PRN ×4 (00:40→23:19)
[2017-10-20] MEDS: D5-1/2NS+20 MEQ KCL - 20 MEQ/1,000 ML INFUS.BAG IV SCH ×3 (00:40→23:41)
[2017-10-20] MEDS ORDERED: morphine SULFATE 4 MG/ML VIAL IVPUSH PRN (00:49)
[2017-10-20] MEDS ORDERED: PIPERACILLIN/TAZOBACTAM 3.375 GM VIAL IVPB ONE ×3 (00:57→16:51)
[2017-10-20] MEDS ORDERED: DEXTROSE 5%-WATER - 50 ML IVPB ONE ×3 (00:58→16:51)
[2017-10-20] MEDS: PIPERACILLIN/TAZOB 3.375 GM 3.375 GM in DEXTROSE 5%-WATER - 50 ML IVPB SCH ×3 (01:01→17:34)
[2017-10-20] MEDS: ENOXAPARIN NA (PORCINE) 40 MG/0.4 ML DISP.SYRIN SQ SCH (06:21)
[2017-10-20] MEDS: morphine SULFATE 4 MG/ML VIAL IVPUSH PRN ×2 (06:27→12:41)
--- NOTE | 2017-10-20 08:45 | PN ---
Progress Note, Physician Chief Complaint: S/P open umbilical hernia repair post op day one History of Present Illness: general anesthesia with ETT - Current Medication List Current Medications: Active Medications Acetaminophen (Tylenol -) 650 mg PO Q4H PRN PRN Reason: TEMP OVER 100.5 OR PAIN 1-3 Enoxaparin Sodium (Lovenox -) 40 mg SQ DAILY@0600 [facility] Last Admin: 10/20/17 06:21 Dose: 40 mg Piperacillin Sod/Tazobactam (Sod 3.375 gm/ Dextrose) 50 mls @ 100 mls/hr IVPB Q8H-IV ZACH PRN Reason: Protocol Last Admin: 10/20/17 01:01 Dose: 100 mls/hr Potassium Chloride/Dextrose/Sod Cl (D5-1/2ns+20 Meq Kcl -) 20 meq in 1,000 mls @ 100 mls/hr IV ASDIR [facility] Last Admin: 10/20/17 00:40 Dose: 100 mls/hr Metoprolol Succinate (Toprol Xl -) 25 mg PO DAILY [facility] Morphine Sulfate (Morphine Sulfate) 4 mg IVPUSH Q3H PRN PRN Reason: PAIN LEVEL 4 - 6 Last Admin: 10/20/17 06:27 Dose: 4 mg Morphine Sulfate (Morphine Sulfate) 6 mg IVPUSH Q3H PRN PRN Reason: PAIN LEVEL 7 - 10 Ondansetron HCl (Zofran Injection) 4 mg IVPUSH Q6H PRN PRN Reason: NAUSEA AND/OR VOMITING Last Admin: 10/20/17 00:40 Dose: 4 mg Pantoprazole Sodium (Protonix -) 40 mg PO DAILY [facility] - Objective Vital Signs: Vital Signs Temperature 97.9 F 10/20/17 06:00 Pulse Rate 115 H 10/20/17 06:00 Respiratory Rate 18 10/20/17 06:00 Blood Pressure 109/69 10/20/17 06:00 O2 Sat by Pulse Oximetry (%) 100 10/19/17 23:00 Constitutional: Yes: Well Nourished Cardiovascular: Yes: WNL Respiratory: Yes: WNL Gastrointestinal: Yes: WNL Labs: CBC, BMP 10/19/17 11:51 10/19/17 11:51 INR, PTT INR 1.08 (0.82-1.09) 10/19/17 11:51 Assessment/Plan Post op day one, pain from incision well controlled, complaining of flank pain from vomiting, no vomiting currently, nausea well controlled. dept of anesthesia will sign off care at this time.
--- NOTE | 2017-10-20 09:29 | PN ---
Progress Note (short form) - Note Progress Note: surgery pt seen and examined. feels well. oob. tolerating liquids, voiding afebrile abd- soft, nd, incision clean, marilyn sanguinous, minimal expected tenderness, A/P 1) Pod#1- surgically stable for discharge on liquids till fri. cont marilyn. f/u for drain removal. rx percocet transmitted. 2) sbo- resolved, no mild ileus. cont liquids until wed
[2017-10-20] MEDS ORDERED: metoPROLOL SUCCINATE 25 MG TAB.SR.24H (FP) PO SCH (10:00)
[2017-10-20] MEDS: PANTOPRAZOLE 40 MG TABLET (FP) PO SCH (11:01)
--- NOTE | 2017-10-20 12:26 | EKG ---
Test Reason : Blood Pressure : / mmHG Vent. Rate : 101 BPM Atrial Rate : 101 BPM P-R Int : 172 ms QRS Dur : 094 ms QT Int : 366 ms P-R-T Axes : 033 -17 015 degrees QTc Int : 474 ms SINUS TACHYCARDIA VOLTAGE CRITERIA FOR LEFT VENTRICULAR HYPERTROPHY ABNORMAL ECG WHEN COMPARED WITH ECG OF 28-JUL-2017 19:20, NO SIGNIFICANT CHANGE WAS FOUND Confirmed by KIM BLACKBURN MD ([id number]) on 10/20/2017 12:25:41 PM Referred By: Confirmed By:KIM BLACKBURN MD
[2017-10-20 13:28] LABS: BASO % 0.5 % (0-2.0); EOS % 0.5 % (0-4.5); HEMATOCRIT 27.7 % (32.4-45.2); HEMOGLOBIN 9.1 GM/dL (10.7-15.3); LYMPH % 11.3 % (8-40); MCH 27.3 pg (25.7-33.7); MCHC 32.6 g/dl (32.0-36.0); MEAN CELL VOLUME 83.7 fl (80-96); MEAN PLT VOLUME 9.5 fl (7.5-11.1); MONO % 7.8 % (3.8-10.2); NEUT % 79.9 % (42.8-82.8); PLATELET COUNT 331 K/MM3 (134-434); RBC 3.31 M/mm3 (3.60-5.2); RDW 14.8 % (11.6-15.6); WHITE BLOOD COUNT 16.3 K/mm3 (4.0-10.0)
--- NOTE | 2017-10-20 14:59 | HP ---
Admitting History and Physical - Admission Chief Complaint: n/v abd pain lt side x1day History of Present Illness: h/o mild vent hernia Limitations to Obtaining History: No Limitations - Past Medical History ...LMP: 09/16/17 - Smoking History Smoking history: Never smoked - Alcohol/Substance Use Hx Alcohol Use: No Home Medications - Allergies Allergies/Adverse Reactions: Allergies Allergy/AdvReac Type Severity Reaction Status Date / Time aspirin Allergy "NOSEBLEEDS Verified 10/19/17 11:04 " clarithromycin [From Biaxin] Allergy "VOMITTING" Verified 10/19/17 11:04 VITAMIN C Allergy "NOSEBLEEDS Uncoded 10/19/17 11:04 " - Home Medications Home Medications: Ambulatory Orders Albuterol Sulfate [Proventil HFA Inhaler -] 1 - 2 inh PO PRN PRN 09/02/17 Atenolol [Tenormin -] 100 mg PO DAILY 09/02/17 Losartan Potassium 25 mg PO DAILY 09/02/17 Montelukast Sodium [Singulair] 10 mg PO DAILY 09/02/17 Naproxen Sodium [Aleve] 220 mg PO PRN PRN 09/02/17 Oxycodone HCl/Acetaminophen [Percocet 5-325 mg Tablet] 1 tab PO Q4H PRN #42 tablet MDD 6 10/20/17 Family Disease History - Family Disease History Family History: Unremarkable Review of Systems - Review of Systems Gastrointestinal: reports: Abdominal Pain Physical Examination Vital Signs: Vital Signs Temperature 98 F 10/20/17 10:00 Pulse Rate 110 H 10/20/17 10:00 Respiratory Rate 16 10/20/17 10:00 Blood Pressure 111/75 10/20/17 11:20 O2 Sat by Pulse Oximetry (%) 97 10/20/17 09:00 Constitutional: Yes: Well Nourished Eyes: Yes: WNL HENT: Yes: WNL Neck: Yes: WNL Cardiovascular: Yes: WNL Respiratory: Yes: WNL Gastrointestinal: Yes: Hernia, Hypoactive Bowel Sounds ...Rectal Exam: Yes: WNL Renal/: Yes: WNL Breast(s): Yes: WNL Musculoskeletal: Yes: WNL Extremities: Yes: WNL Edema: No Peripheral Pulses WNL: No Integumentary: Yes: WNL Wound/Incision: Yes: Clean/Dry, Other (drain intact draing) Neurological: Yes: WNL ...Motor Strength: WNL Psychiatric: Yes: WNL Labs: CBC, BMP 10/20/17 13:05 10/19/17 11:51 Assessment/Plan cont full l;iq diet chk cbc in am ? advance diet ? d/c drain?? oob
--- NOTE | 2017-10-20 16:09 | CON.ID ---
Consult Consult Specialty:: infectious diseases Referred by:: Reason for Consultation:: intestinal obstruction - History of Present Illness Chief Complaint: abd pain History of Present Illness: 47 year old female with a significant past medical history of Asthma, Pancreatitis (20 years ago), and Heart Arrhythmia, patient was admitted for abd pain patient was seen by surgery found to have abd hernia.patient was taken to the or and operated. patient now post op and doing well tolerating liquids. patient also has a marilyn drain in place patient has been having this hernia for a long time - History Source History Provided By: Patient Limitations to Obtaining History: No Limitations - Past Medical History ...LMP: 09/16/17 - Alcohol/Substance Use Hx Alcohol Use: No - Smoking History Smoking history: Never smoked Home Medications - Allergies Allergies/Adverse Reactions: Allergies Allergy/AdvReac Type Severity Reaction Status Date / Time aspirin Allergy "NOSEBLEEDS Verified 10/19/17 11:04 " clarithromycin [From Biaxin] Allergy "VOMITTING" Verified 10/19/17 11:04 VITAMIN C Allergy "NOSEBLEEDS Uncoded 10/19/17 11:04 " - Home Medications Home Medications: Ambulatory Orders Albuterol Sulfate [Proventil HFA Inhaler -] 1 - 2 inh PO PRN PRN 09/02/17 Atenolol [Tenormin -] 100 mg PO DAILY 09/02/17 Losartan Potassium 25 mg PO DAILY 09/02/17 Montelukast Sodium [Singulair] 10 mg PO DAILY 09/02/17 Naproxen Sodium [Aleve] 220 mg PO PRN PRN 09/02/17 Oxycodone HCl/Acetaminophen [Percocet 5-325 mg Tablet] 1 tab PO Q4H PRN #42 tablet MDD 6 10/20/17 Review of Systems - Review of Systems Constitutional: reports: No Symptoms Eyes: reports: No Symptoms HENT: reports: No Symptoms Neck: reports: No Symptoms Cardiovascular: reports: No Symptoms Respiratory: reports: No Symptoms Gastrointestinal: reports: Abdominal Pain, Other Genitourinary: reports: No Symptoms Musculoskeletal: reports: No Symptoms Integumentary: reports: No Symptoms Neurological: reports: No Symptoms Endocrine: reports: No Symptoms Hematology/Lymphatic: reports: No Symptoms Psychiatric: reports: No Symptoms Physical Exam Vital Signs: Vital Signs Temperature 98.2 F 10/20/17 15:09 Pulse Rate 112 H 10/20/17 15:09 Respiratory Rate 18 10/20/17 15:09 Blood Pressure 120/75 10/20/17 15:09 O2 Sat by Pulse Oximetry (%) 97 10/20/17 09:00 Constitutional: Yes: Well Nourished, No Distress, Calm, Obese Eyes: Yes: Conjunctiva Clear Neck: Yes: Supple Cardiovascular: Yes: Regular Rate and Rhythm Respiratory: Yes: Regular, CTA Bilaterally Gastrointestinal: Yes: Soft, Hypoactive Bowel Sounds, Other (marilyn drain in place) Musculoskeletal: Yes: WNL Extremities: Yes: WNL Neurological: Yes: Alert, Oriented Psychiatric: Yes: Alert, Oriented Labs: CBC, BMP 10/20/17 13:05 10/19/17 11:51 Assessment/Plan obesity int obstruction umbilical hernia post op leukocytosis patients wbc has increased probably due to post op plan check wbc tomorrow will continue zosyn if patient stable can switch to augmentin if tolerating orally can stop abx once patient tolerating and eating well plan for drainage tube
--- NOTE | 2017-10-20 18:25 | CON.GI ---
Consult Consult Specialty:: GI Referred by:: Dr Charles Henry - History of Present Illness History of Present Illness: Iwas asked to see the patieint for small bowel obstruction.47 Y/O f was doing well until 10/19/2017 when she developed sevre abdominal pain. Catscan of the abdomen revealed incarcerated ventral hernia. She underwent ventral hernia repair and omentectomy yesterday. There was minmal flatus no bowel movement - Past Medical History ...LMP: 09/16/17 - Alcohol/Substance Use Hx Alcohol Use: No - Smoking History Smoking history: Never smoked Home Medications - Allergies Allergies/Adverse Reactions: Allergies Allergy/AdvReac Type Severity Reaction Status Date / Time aspirin Allergy "NOSEBLEEDS Verified 10/19/17 11:04 " clarithromycin [From Biaxin] Allergy "VOMITTING" Verified 10/19/17 11:04 VITAMIN C Allergy "NOSEBLEEDS Uncoded 10/19/17 11:04 " - Home Medications Home Medications: Ambulatory Orders Albuterol Sulfate [Proventil HFA Inhaler -] 1 - 2 inh PO PRN PRN 09/02/17 Atenolol [Tenormin -] 100 mg PO DAILY 09/02/17 Losartan Potassium 25 mg PO DAILY 09/02/17 Montelukast Sodium [Singulair] 10 mg PO DAILY 09/02/17 Naproxen Sodium [Aleve] 220 mg PO PRN PRN 09/02/17 Oxycodone HCl/Acetaminophen [Percocet 5-325 mg Tablet] 1 tab PO Q4H PRN #42 tablet MDD 6 10/20/17 Physical Exam-GI Vital Signs: Vital Signs Temperature 98.1 F 10/20/17 16:30 Pulse Rate 105 H 10/20/17 16:30 Respiratory Rate 20 10/20/17 16:30 Blood Pressure 130/71 10/20/17 16:30 O2 Sat by Pulse Oximetry (%) 97 10/20/17 09:00 Constitutional: Yes: Well Nourished Eyes: Yes: Conjunctiva Clear HENT: Yes: Atraumatic Neck: Yes: Supple Cardiovascular: Yes: Regular Rate and Rhythm Respiratory: Yes: CTA Bilaterally Gastrointestinal Inspection: Yes: Distention ...Palpate: Yes: Soft, Tenderness (--diffuse). No: Firm/Rigid, Hepatomegaly, Mass, Pulsatile Mass, Splenomegaly Labs: CBC, BMP 10/20/17 13:05 10/19/17 11:51 INR, PTT INR 1.08 (0.82-1.09) 10/19/17 11:51 CBC,CMP WBC 16.3 K/mm3 (4.0-10.0) H 10/20/17 13:05 RBC 3.31 M/mm3 (3.60-5.2) L D 10/20/17 13:05 Hgb 9.1 GM/dL (10.7-15.3) L D 10/20/17 13:05 Hct 27.7 % (32.4-45.2) L D 10/20/17 13:05 MCV 83.7 fl (80-96) 10/20/17 13:05 MCH 27.3 pg (25.7-33.7) 10/20/17 13:05 MCHC 32.6 g/dl (32.0-36.0) 10/20/17 13:05 RDW 14.8 % (11.6-15.6) 10/20/17 13:05 Plt Count 331 K/MM3 (134-434) 10/20/17 13:05 MPV 9.5 fl (7.5-11.1) 10/20/17 13:05 Neutrophils % 79.9 % (42.8-82.8) 10/20/17 13:05 Lymphocytes % 11.3 % (8-40) 10/20/17 13:05 Monocytes % 7.8 % (3.8-10.2) D 10/20/17 13:05 Eosinophils % 0.5 % (0-4.5) D 10/20/17 13:05 Basophils % 0.5 % (0-2.0) 10/20/17 13:05 Sodium 137 mmol/L (136-145) 10/19/17 11:51 Potassium 4.4 mmol/L (3.5-5.1) 10/19/17 11:51 Chloride 102 mmol/L (98-107) 10/19/17 11:51 Carbon Dioxide 27 mmol/L (21-32) 10/19/17 11:51 Anion Gap 8 (8-16) 10/19/17 11:51 BUN 13 mg/dL (7-18) 10/19/17 11:51 Creatinine 0.8 mg/dL (0.55-1.02) 10/19/17 11:51 Creat Clearance w eGFR > 60 (>60) 10/19/17 11:51 Random Glucose 118 mg/dL (74-106) H 10/19/17 11:51 Calcium 9.2 mg/dL (8.5-10.1) 10/19/17 11:51 Total Bilirubin 0.5 mg/dL (0.2-1.0) D 10/19/17 11:51 AST 16 U/L (15-37) 10/19/17 11:51 ALT 27 U/L (12-78) 10/19/17 11:51 Alkaline Phosphatase 105 U/L (45-117) 10/19/17 11:51 Total Protein 8.4 g/dl (6.4-8.2) H 10/19/17 11:51 Albumin 4.0 g/dl (3.4-5.0) 10/19/17 11:51 Lipase 95 U/L (73-393) 10/19/17 11:51 TSH 1.07 uIU/ml (0.358-3.74) 10/19/17 11:51 Free T4 1.22 ng/dl (0.76-1.46) 10/19/17 11:51 Serum , Qual Negative 10/19/17 11:51 Problem List - Problems (1) Incarcerated hernia Assessment/Plan: s/p surgery, post surgical ileus R> continue IV hydration consider IV Reglan if okay with surgery encourage ambulation Code(s): K46.0 - UNSP ABDOMINAL HERNIA WITH OBSTRUCTION, WITHOUT GANGRENE
[2017-10-21] MEDS ORDERED: PIPERACILLIN/TAZOBACTAM 3.375 GM VIAL IVPB ONE (00:58)
[2017-10-21] MEDS ORDERED: DEXTROSE 5%-WATER - 50 ML IVPB ONE (00:59)
[2017-10-21] MEDS: PIPERACILLIN/TAZOB 3.375 GM 3.375 GM in DEXTROSE 5%-WATER - 50 ML IVPB SCH (01:34)
[2017-10-21] MEDS: ENOXAPARIN NA (PORCINE) 40 MG/0.4 ML DISP.SYRIN SQ SCH (06:08)
[2017-10-21 07:18] LABS: BASO % 0.7 % (0-2.0); EOS % 5.3 % (0-4.5); HEMATOCRIT 24.9 % (32.4-45.2); HEMOGLOBIN 8.2 GM/dL (10.7-15.3); LYMPH % 16.6 % (8-40); MCH 27.6 pg (25.7-33.7); MEAN CELL VOLUME 83.7 fl (80-96); MEAN PLT VOLUME 9.8 fl (7.5-11.1); MONO % 8.6 % (3.8-10.2); NEUT % 68.8 % (42.8-82.8); PLATELET COUNT 254 K/MM3 (134-434); RBC 2.98 M/mm3 (3.60-5.2); RDW 14.8 % (11.6-15.6); WHITE BLOOD COUNT 13.1 K/mm3 (4.0-10.0)
[2017-10-21] MEDS: ONDANSETRON 4 MG/2 ML VIAL IVPUSH PRN (07:37)
--- NOTE | 2017-10-21 09:14 | PN ---
Progress Note (short form) - Note Progress Note: surgery pt with some mild nausea but tolerating 1/2 tray of full liquids. Still ambulating and voiding. Plan- recommend discharge with 1 week of reglan. rx percocet. drain will stay until next week and be removed by Dr. Augustin. Call [phone]. Should stay on a liquid only diet for rest of week. Antibiotics are not needed.
[2017-10-21] MEDS: PANTOPRAZOLE 40 MG TABLET (FP) PO SCH (09:44)
--- NOTE | 2017-10-21 10:54 | PN ---
Progress Note, Physician Chief Complaint: nasea still heart rate high? bp higher no bm no bowel sounds dx ileus mesha x 1 ekg iv d/c atbx d/c cont full liq no adsvance yet - Current Medication List Current Medications: Active Medications Acetaminophen (Tylenol -) 650 mg PO Q4H PRN PRN Reason: TEMP OVER 100.5 OR PAIN 1-3 Enoxaparin Sodium (Lovenox -) 40 mg SQ DAILY@0600 [facility] Last Admin: 10/21/17 06:08 Dose: 40 mg Metoclopramide HCl (Reglan -) 10 mg PO TIDAC [facility] Metoprolol Succinate (Toprol Xl -) 50 mg PO DAILY [facility] Last Admin: 10/21/17 09:44 Dose: 50 mg Ondansetron HCl (Zofran Injection) 4 mg IVPUSH Q6H PRN PRN Reason: NAUSEA AND/OR VOMITING Last Admin: 10/21/17 07:37 Dose: 4 mg Pantoprazole Sodium (Protonix -) 40 mg PO DAILY [facility] Last Admin: 10/21/17 09:44 Dose: 40 mg - Objective Vital Signs: Vital Signs Temperature 98.7 F 10/21/17 05:00 Pulse Rate 112 H 10/21/17 05:00 Respiratory Rate 18 10/21/17 05:00 Blood Pressure 132/94 10/21/17 05:00 O2 Sat by Pulse Oximetry (%) 97 10/20/17 21:00 Labs: CBC, BMP 10/21/17 06:40 10/19/17 11:51 INR, PTT INR 1.08 (0.82-1.09) 10/19/17 11:51
[2017-10-21] MEDS: METOCLOPRAMIDE HCL 10 MG TABLET (FP) PO SCH ×2 (11:55→16:42)
--- NOTE | 2017-10-21 14:39 | PN ---
Progress Note, Physician History of Present Illness: nausea today dry heaves drain still in place abd pain - Current Medication List Current Medications: Active Medications Acetaminophen (Tylenol -) 650 mg PO Q4H PRN PRN Reason: TEMP OVER 100.5 OR PAIN 1-3 Enoxaparin Sodium (Lovenox -) 40 mg SQ DAILY@0600 [facility] Last Admin: 10/21/17 06:08 Dose: 40 mg Metoclopramide HCl (Reglan -) 10 mg PO TIDAC [facility] Last Admin: 10/21/17 11:55 Dose: 10 mg Metoprolol Succinate (Toprol Xl -) 50 mg PO DAILY [facility] Last Admin: 10/21/17 09:44 Dose: 50 mg Ondansetron HCl (Zofran Injection) 4 mg IVPUSH Q6H PRN PRN Reason: NAUSEA AND/OR VOMITING Last Admin: 10/21/17 07:37 Dose: 4 mg Pantoprazole Sodium (Protonix -) 40 mg PO DAILY [facility] Last Admin: 10/21/17 09:44 Dose: 40 mg - Objective Vital Signs: Vital Signs Temperature 98.7 F 10/21/17 05:00 Pulse Rate 112 H 10/21/17 05:00 Respiratory Rate 18 10/21/17 05:00 Blood Pressure 132/94 10/21/17 05:00 O2 Sat by Pulse Oximetry (%) 97 10/20/17 21:00 Constitutional: Yes: Calm, Mild Distress, Obese Cardiovascular: Yes: Regular Rate and Rhythm Respiratory: Yes: Poor Air Entry Gastrointestinal: Yes: Soft, Hypoactive Bowel Sounds Musculoskeletal: Yes: WNL Extremities: Yes: WNL Neurological: Yes: Alert, Oriented Psychiatric: Yes: Alert, Oriented Labs: CBC, BMP 10/21/17 06:40 10/19/17 11:51 INR, PTT INR 1.08 (0.82-1.09) 10/19/17 11:51 Assessment/Plan obesity int obstruction umbilical hernia post op leukocytosis wbc trending down patient off of bax---stopped by the surgical team plan check wbc tomorrow monitor without abx monitor nausea
--- NOTE | 2017-10-21 15:35 | PATH ---
Surgical Pathology Report Patient Name: BROOK GAVIR[facility]. Rec. #: [id number] /Age/Gender: 1970 (Age: 47) / F Account: [id number] Location: [address] [place] [address] Taken: 10/19/2017 Received: 10/20/2017 Reported: 10/21/2017 Physicians: Kurt Augustin Specimen(s) Received OMENTUM AND HERNIA SAC Clinical History Small bowel obstruction by incarceration of hernia Final Diagnosis SOFT TISSUE, ABDOMINAL WALL, EXCISION: HERNIA SAC, AND BENIGN ADIPOSE TISSUE. Electronically Signed Behzad Shine M.D. Gross Description Received in formalin labeled "omentum with hernia sac in the middle," is a 15.0 x 12.5 x 3.0 cm aggregate of yellow, lobulated adipose tissue. Sectioning reveals foci of fibrous tissue, consistent with a hernia sac. [employer] sections are submitted in one cassette. /10/20/2017 [facility]/10/20/2017
--- NOTE | 2017-10-21 16:44 | EKG ---
Test Reason : Blood Pressure : / mmHG Vent. Rate : 105 BPM Atrial Rate : 105 BPM P-R Int : 158 ms QRS Dur : 098 ms QT Int : 362 ms P-R-T Axes : 003 -13 007 degrees QTc Int : 478 ms SINUS TACHYCARDIA VOLTAGE CRITERIA FOR LEFT VENTRICULAR HYPERTROPHY ABNORMAL ECG WHEN COMPARED WITH ECG OF 19-OCT-2017 11:06, NO SIGNIFICANT CHANGE WAS FOUND Confirmed by MD Claudette, Devaughn ([id number]) on 10/21/2017 4:44:00 PM Referred By: Shannan ANDERS Confirmed By:Devaughn Wilkins MD
[2017-10-22] MEDS: ENOXAPARIN NA (PORCINE) 40 MG/0.4 ML DISP.SYRIN SQ SCH (06:19)
[2017-10-22] MEDS: METOCLOPRAMIDE HCL 10 MG TABLET (FP) PO SCH ×2 (06:19→10:25)
[2017-10-22 07:13] VITALS: PULSE 116; TEMP 98.6
[2017-10-22 08:00] LABS: BASO % 0.7 % (0-2.0); EOS % 5.4 % (0-4.5); HEMATOCRIT 25.5 % (32.4-45.2); HEMOGLOBIN 8.6 GM/dL (10.7-15.3); LYMPH % 26.7 % (8-40); MCH 28.1 pg (25.7-33.7); MCHC 33.6 g/dl (32.0-36.0); MEAN CELL VOLUME 83.6 fl (80-96); MEAN PLT VOLUME 9.5 fl (7.5-11.1); MONO % 8.6 % (3.8-10.2); NEUT % 58.6 % (42.8-82.8); PLATELET COUNT 274 K/MM3 (134-434); RBC 3.05 M/mm3 (3.60-5.2); RDW 14.5 % (11.6-15.6); WHITE BLOOD COUNT 11.7 K/mm3 (4.0-10.0)
[2017-10-22 08:27] LABS: ANION GAP 8 (8-16); BLOOD UREA NITROGEN 6 mg/dL (7-18); CALCIUM 8.6 mg/dL (8.5-10.1); CHLORIDE 105 mmol/L (98-107); CO2 28 mmol/L (21-32); CREATININE 0.7 mg/dL (0.55-1.02); GLUCOSE,RANDOM 89 mg/dL (74-106); POTASSIUM 3.8 mmol/L (3.5-5.1); SODIUM 141 mmol/L (136-145)
[2017-10-22 10:24] VITALS: BP 139/90
[2017-10-22] MEDS: PANTOPRAZOLE 40 MG TABLET (FP) PO SCH (10:24)
--- NOTE | 2017-10-22 10:37 | DS ---
Physical Examination Vital Signs: Vital Signs Temperature 98.6 F 10/22/17 06:00 Pulse Rate 116 H 10/22/17 10:00 Respiratory Rate 20 10/22/17 10:00 Blood Pressure 139/90 10/22/17 10:00 O2 Sat by Pulse Oximetry (%) 97 10/21/17 21:00 Constitutional: Yes: Well Nourished Eyes: Yes: WNL HENT: Yes: WNL Neck: Yes: WNL Cardiovascular: Yes: WNL Respiratory: Yes: WNL Gastrointestinal: Yes: Other (drain intact wd healing) Renal/: Yes: WNL Breast(s): Yes: WNL Musculoskeletal: Yes: WNL Extremities: Yes: WNL Edema: No Integumentary: Yes: WNL Wound/Incision: Yes: Clean/Dry Neurological: Yes: WNL ...Motor Strength: WNL Psychiatric: Yes: WNL Labs: CBC, BMP 10/22/17 07:52 10/22/17 07:52 Discharge Summary Reason For Visit: SMALL BOWEL OBSTRUCTION INCARCERATED Current Active Problems Incarcerated hernia (Acute) SBO (small bowel obstruction) (Acute) Condition: Stable - Instructions Diet, Activity, Other Instructions: full liq only until sees sx drain to be taking out by sx cont all meds as is at home f/u w me 1200 noon friday Referrals: Charles Henry MD [Primary Care Provider] - Disposition: HOME - Home Medications Comprehensive Discharge Medication List: Ambulatory Orders Albuterol Sulfate [Proventil HFA Inhaler -] 1 - 2 inh PO PRN PRN 09/02/17 Atenolol [Tenormin -] 100 mg PO DAILY 09/02/17 Losartan Potassium 25 mg PO DAILY 09/02/17 Montelukast Sodium [Singulair] 10 mg PO DAILY 09/02/17 Naproxen Sodium [Aleve] 220 mg PO PRN PRN 09/02/17 Oxycodone HCl/Acetaminophen [Percocet 5-325 mg Tablet] 1 tab PO Q4H PRN #42 tablet MDD 6 10/20/17 Metoclopramide HCl [Reglan] 10 mg PO TID #21 tablet 10/21/17
[2017-10-23] MEDS ORDERED: LOSARTAN 50MG/HCTZ 12.5MG 1 TAB (FP) PO SCH (10:00)
[2017-10-23] MEDS ORDERED: LOSARTAN POTASSIUM 50 MG TABLET (FP) PO SCH (10:00)
[2017-10-23] MEDS ORDERED: HYDROCHLOROTHIAZIDE 12.5 MG CAPSULE (FP) PO SCH (10:00)
== END 2017-10-22 11:13 | disposition home or self-care (01) | DRG 354 ==
LOC: JER 10:37 → JERBED 17:15 → J5S 22:41
PROVIDERS: ADMIT Family Medicine; ATTEND Family Medicine
PROC: 0DBU0ZZ Excision of Omentum, Open Approach (ICD-10-PCS; 2017-10-19)
PROC: 0WQF0ZZ Repair Abdominal Wall, Open Approach (ICD-10-PCS; principal; 2017-10-19 19:00)
DX: K43.6 Other and unspecified ventral hernia with obstruction, without gangrene (principal); Z68.43 Body mass index [BMI] 50.0-59.9, adult; D72.829 Elevated white blood cell count, unspecified; I10 Essential (primary) hypertension; E78.5 Hyperlipidemia, unspecified; E66.9 Obesity, unspecified
CPT/HCPCS: 36415; 74177-TC; 76856-TC; 80048; 80053; 81003; 81015; 83690; 84439; 84443; 84484; 84703; 85025; 85610; 85730; 86304; 86850; 86900; 86901; 88302-TC; 93005; 93010; 94760; 99285-25; J7030